=== PATIENT | female | born 1995 | race Hispanic/Latino ===

== ENCOUNTER 2018-06-27 11:50 | Inpatient (IN) | payer OTHER ==
[2018-06-27] MEDS ORDERED: XYLOCAINE 2% INFILTRATI ONE (12:19)
[2018-06-27] MEDS ORDERED: AMPICILLIN/NS 2 GM/100 ML 2 GM/100 ML BAG IV ONE (12:19)
[2018-06-27] MEDS ORDERED: CELESTONE SOLUSPAN IM ONE (12:21)
--- NOTE | 2018-06-27 12:23 | History and Physical Report ---
History of Present Illness Date of examination: 06/27/18 Date of admission: 06/27/2017 Chief complaint: Labor History of present illness: 22 year old presents to L&D stating she has had contractions for the past 3 days which became worse at 11:00 AM today. Patient denies vaginal bleeding or leaking of fluid. Patient reports active movement. Patient states she has been receiving regular care at [facility] and [facility]. No records are available here in L&D. records have been requested. Patient states her due date is 07/20/18; she states this was confirmed by first trimester US. Patient states she has a history of hepatitis C; she state she is a previous cigarette smoker but quit as soon as she found out she was . labs are not available; they have been drawn on patient's arrival today. Past History Past Medical History: hepatitis, other (previous cigarette smoker) Past Surgical History: no surgical history [facility] History: hepatitis C. denies: cancer, chlamydia, gonorrhea, hepatitis B, HIV, syphilis Family/Genetic History: none Social history: single, lives with family, full code. denies: smoking, alcohol abuse, prescription drug abuse, IV drug use - Obstetrical History Expected Date of Delivery: 07/20/18 Actual Gestation: 36 Week(s) 5 Day(s) : 3 Para: 1 Hx # Term Pregnancies: 1 Number of Pregnancies: 1 Spontaneous Abortions: 1 Induced : 0 Number of Living Children: 1 Medications and Allergies Allergies Allergy/AdvReac Type Severity Reaction Status Date / Time No Known Allergies Allergy Verified 06/27/18 11:53 Home Medications Medication Instructions Recorded Confirmed Last Taken Type Acetaminophen/Codeine [Tylenol #3] 1 tab PO Q6H PRN #12 tab 11/12/14 10/15/15 Unknown Rx Gentamicin 0.3% Ophth Soln 2 drops OS QID #5 ml 11/12/14 10/15/15 Unknown Rx Sulfamethoxazole/Trimethoprim 1 each PO Q12H #20 tablet 11/12/14 10/15/15 Unknown Rx [Bactrim DS TAB] Glycerin/Witch Callie Pad [Tucks 40 each TP 4XD PRN #1 box 10/16/15 Unknown Rx Pad] Ibuprofen [Motrin] 600 mg PO Q8H PRN #60 tablet 10/16/15 Unknown Rx Active Meds: Active Medications Betamethasone Acet/Betameth SodPhos (Celestone Soluspan) 12 mg IM ONCE ONE Stop: 06/27/18 12:22 Diagnostic Test (Pha) (Nitratest Paper) 1 each ONCE ONE Stop: 06/27/18 13:00 Ephedrine Sulfate (Ephedrine Sulfate) 10 mg IV Q2M PRN PRN Reason: Hypotension Ampicillin Sodium (Polycillin/Ns 2 Gm/100 Ml) 2 gm in 100 mls @ 100 mls/hr IV ONCE ONE; Protocol Stop: 06/27/18 13:18 Lactated Ringer's (Lactated Ringers) 1,000 mls @ 125 mls/hr IV DIRECT LUIS Oxytocin/Sodium Chloride (Pitocin/Ns 20 Unit/1000ml Drip) 20 units in 1,000 mls @ 125 mls/hr IV DIRECT LUIS Lidocaine (Xylocaine 2%) 20 ml INFILTRATI ONCE ONE Stop: 06/27/18 12:20 Review of Systems All systems: negative (contractions for past 3 days, worsening today.) - Vital Signs Vital signs: Vital Signs Pulse BP Pulse Ox 83 146/67 98 06/27/18 12:02 06/27/18 12:02 06/27/18 12:02 Temp Pulse Resp BP Pulse Ox 86 146/67 92 06/27/18 12:17 06/27/18 12:02 06/27/18 12:17 - Physical Exam Abdomen: Positive: normal appearance, soft. Negative: distention, tenderness, guarding, rigidity Genitourinary (Female): Positive: normal external genitalia, normal perenium. Negative: perineal/vulvar lesions Vagina: Positive: normal moisture Uterus: Positive: enlarged (gravid) Anus/Rectum: Positive: normal perianal skin Extremities: Positive: normal. Negative: tenderness, edema - Obstetrical FHR: category 1 Uterine Contraction Monitor Mode: External Cervical Dilatation: 9 Cervical Effacement Percentage: 100 station: 0 Uterine Contraction Pattern: Regular Uterine Contraction Intensity: Moderate Results Result Diagrams: 06/27/18 12:35 All other labs normal. Assessment and Plan A: at 36 weeks, 5 days gestation. GBS unknown. Advanced active labor. Hepatitis C positive per patient report. records not available but have been requested. P: Admit. Ampicillin for GBS prophylaxis. Celestone IM. Continuous EFM. Notify NICU of gestation and hepatitis C status of pt. Prentatal labs drawn. Anticipate vaginal .
[2018-06-27] MEDS ORDERED: NITRATEST PAPER MC ONE (12:59)
[2018-06-27] MEDS ORDERED: PITOCin/NS 20 UNIT/1000ML DRIP 20 UNITS/1,000 ML BAG IV SCH (13:00)
[2018-06-27] MEDS ORDERED: LACTATED RINGERS 1,000 ML IV SCH (13:00)
[2018-06-27 13:06] LABS: Hematocrit 40.8 % (30.3-42.9); Hemoglobin 14.1 gm/dl (10.1-14.3); Mean Corpuscular HGB Conc 35 % (30-34); Mean Corpuscular Volume 93 fl (79-97); Platelet Count 128 K/mm3 (140-440); Red Blood Count 4.37 M/mm3 (3.65-5.03); Red Cell Distribution Width 13.5 % (13.2-15.2)
[2018-06-27 14:01] LABS: Hepatitis C Virus Antibody Reactive (NonReactive)
[2018-06-27] MEDS ORDERED: TYLENOL PO PRN (14:01)
[2018-06-27] MEDS ORDERED: DULCOLAX PR PRN (14:01)
[2018-06-27] MEDS ORDERED: LANSINOH TP PRN (14:01)
[2018-06-27] MEDS ORDERED: TUCKS PAD TP PRN (14:01)
[2018-06-27] MEDS ORDERED: MILK OF MAGNESIA PO PRN (14:01)
--- NOTE | 2018-06-27 14:17 | Procedure Note ---
OB Delivery Note - Delivery Date of Delivery: 06/27/18 Surgeon: CEM AGRAWAL Estimated blood loss: other (250 cc) - Vaginal Delivery presentation: vertex Delivery position: OA Intrapartum events: none Delivery induction: none Delivery monitor: external FHT, external uterine Route of delivery: Delivery placenta: spontaneous Delivery cord: 3 umbilical vessels Episiotomy: none Delivery laceration: none Anesthesia: none Delivery comments: Spontaneous vaginal delivery at 13:16 of liveborn male weighing 5 lb. 4 oz. over intact perineum with apgars of 8/9. Baby placed immediately on mother's chest after delivery. Spontaneous cry and respirations. Baby dried and suctioned with bulb syringe. 3 vessel cord double clamped and cut. Cord blood obtained. Spontaneous delivery of intact placenta and membranes by phillip mechanism. EBL 250 cc. Pitocin IM just prior to placental delivery (patient's IV had come out). Fundus firm and midline. Vaginal sweep negative. No lacerations noted. Sponge count correct. Mother and baby stable in birthing room.
[2018-06-27] MEDS ORDERED: SODIUM CHLORIDE FLUSH SYRINGE 10 ML IV NR (15:00)
[2018-06-27] MEDS: IBUPROFEN PO SCH (21:47)
[2018-06-28 02:03] LABS: Hematocrit 34.7 % (30.3-42.9); Hemoglobin 11.9 gm/dl (10.1-14.3)
[2018-06-28] MEDS: IBUPROFEN PO SCH ×2 (03:22→10:15)
--- NOTE | 2018-06-28 19:36 | Progress Note ---
Assessment and Plan A: day 1 S/P spontaneous vaginal delivery. P: Continue current management. Anticipate discharge tomorrow. Subjective - Subjective Date of service: 06/28/18 Principal diagnosis: day 1 S/P Interval history: day 1 S/P . Doing well. Voiding without difficulty. Ambulating well. Tolerating regular diet without nausea or vomiting. Patient denies headache, chest pain, cough, shortness of breath, abdominal pain, leg pain, or heavy bleeding. Patient reports: appetite normal, voiding normally, pain well controlled, flatus, ambulating normally, no dizzy ambulation, no nauseated : doing well Objective - Vital Signs Latest vital signs: Vital Signs Temp Pulse Resp BP Pulse Ox 06/28/18 18:05 98.5 F 66 18 108/58 06/28/18 07:37 98.2 F 65 18 106/55 06/28/18 00:00 98.9 F 75 18 116/69 99 06/27/18 20:00 98.0 F 82 18 132/78 99 Intake and Output 06/28/18 06/28/18 06/28/18 07:59 15:59 23:59 Intake Total 600 480 Balance 600 480 Intake: Oral 600 480 Other: Total, Intake Amount 360 480 # Voids Void 1 - Exam Abdomen: Present: normal appearance, soft. Absent: distention, tenderness, guarding, rigidity Uterus: Present: normal, firm, fundal height below umbilicus. Absent: bogginess, tenderness Extremities: Present: normal. Absent: tenderness, edema
[2018-06-29] MEDS: IBUPROFEN PO SCH ×3 (00:33→19:21)
[2018-06-29 10:59] VITALS: BP 103/47
--- NOTE | 2018-06-29 13:41 | Progress Note ---
Assessment and Plan - Patient Problems (1) Status post normal vaginal delivery Current Visit: Yes Status: Acute Plan to address problem: PPD 2 - stable Continue routine PP orders Discharge to home later today Follow up at [facility] in 6 weeks for exam Subjective - Subjective Date of service: 06/29/18 Principal diagnosis: PPD #2; s/p Interval history: see H&P, OB Delivery Procedure Note and PP/[employer] Progress Note Patient reports: appetite normal, voiding normally, pain well controlled, ambulating normally, no dizzy ambulation Hodges: in NICU Objective - Vital Signs Latest vital signs: Vital Signs Temp Pulse Resp BP BP Pulse Ox 06/29/18 08:24 97.6 F 63 20 103/47 98 06/29/18 00:33 18 06/28/18 18:05 98.5 F 66 18 108/58 Intake and Output 06/28/18 06/29/18 06/29/18 23:59 07:59 15:59 Intake Total 480 Balance 480 Intake: Oral 480 Other: Total, Intake Amount 480 - Exam Cardiovascular: Present: Regular rate Lungs: Present: Clear to auscultation Abdomen: Present: normal appearance, soft Vulva: both: normal Uterus: Present: normal, firm, fundal height below umbilicus Extremities: Present: normal Comments: scant lochia
--- NOTE | 2018-06-29 13:44 | Discharge Summary ---
Providers - Providers Date of Admission: 06/27/18 12:27 Date of discharge: 06/29/18 Attending physician: SARAHY MEIER Primary care physician: SARAHY MEIER Hospitalization Reason for admission: active labor, IUP - Delivery: Episiotomy: none Laceration: none Other procedures: none complications: none Discharge diagnosis: delivery Hemlock baby: male Hospital course: Uncomplicated Condition at discharge: Stable Disposition: DC-[id number] TO HOME OR SELFCARE - Discharge Diagnoses (1) Status post normal vaginal delivery Status: Acute Plan - Provider Discharge Summary Activity: routine, no sex for 6 weeks, no heavy lifting 4 weeks, no strenuous exercise Diet: routine Instructions: routine Additional instructions: [] Smoking cessation referral if applicable(refer to patient education folder for contact #) [] Refer to [facility]'s [facility] Center Booklet Call your doctor immediately for: * Fever > 100.5 * Heavy vaginal bleeding ( >1 pad per hour) * Severe persistent headache * Shortness of breath * Reddened, hot, painful area to leg or breast * Drainage or odor from incision. * Keep incision clean and dry at all times and follow doctor's instructions regarding bathing/showering - Follow up plan Follow up: SARAHY MEIER MD [Primary Care Provider] - 6 Weeks (Follow up at [facility] in 6 weeks for exam)
== END 2018-06-29 19:50 | disposition home or self-care (01) | DRG 774 ==
LOC: TRG 11:50 → LD 12:27 → OB 17:38
PROVIDERS: ADMIT Obstetrics & Gynecology; ATTEND Obstetrics & Gynecology
PROC: 10E0XZZ Delivery of Products of Conception, External Approach (ICD-10-PCS; principal; 2018-06-27)
DX: O98.42 Viral hepatitis complicating childbirth (principal); B19.20 Unspecified viral hepatitis C without hepatic coma; Z3A.36 36 weeks gestation of pregnancy; Z37.0 Single live birth; Z87.891 Personal history of nicotine dependence
CPT/HCPCS: 36415; 83036; 85014; 85018; 85027; 86592; 86706; 86762; 86803; 86850; 86900; 86901; 87806; G0378; J0290; J2590; J7120

== ENCOUNTER 2020-09-04 21:23 | Emergency (ER) | payer OTHER | END 2020-09-04 22:53 | LOC: ED 21:23 | DX: Z00.8 Encounter for other general examination (principal); Z53.21 Procedure and treatment not carried out due to patient leaving prior to being seen by health care provider ==